=== PATIENT | female | born 1980 | race Caucasian/White ===

== ENCOUNTER 2016-07-10 04:37 | Observation (INO) | payer BC ==
[~2016-07-10 04:37] MED LIST: IBUPROFEN800 MG PO; MOTRIN800 MG PO; OXYCODONE/APAP PO; PRENATAL1 EACH PO; PRENATE ELITE1 EACH PO; ZYRTEC10 M1 PO
[2016-07-10 05:02] LABS: URINE BILIRUBIN NEGATIVE (NEG); URINE BLOOD NEGATIVE (NEG); URINE GLUCOSE (UA) NEGATIVE (NEG); URINE KETONE NEGATIVE (NEG); URINE LEUKOCYTE ESTERASE NEGATIVE (NEG); URINE NITRITE NEGATIVE (NEG); URINE PROTEIN NEGATIVE (NEG); URINE SPECIFIC GRAVITY 1.005 (1.003-1.030)
[2016-07-10 05:06] LABS: URINE APPEARANCE CLEAR; URINE COLOR YELLOW
[2016-07-10] MEDS ORDERED: ZYRTEC10 M7 PO (05:25)
== END 2016-07-10 07:45 ==
LOC: LDR 04:37
PROVIDERS: ADMIT Obstetrics & Gynecology
DX: O47.03 False labor before 37 completed weeks of gestation, third trimester (principal); O30.033 Twin pregnancy, monochorionic/diamniotic, third trimester; Z3A.34 34 weeks gestation of pregnancy; Z88.0 Allergy status to penicillin